=== PATIENT | male | born 1955 | race Caucasian/White ===

== ENCOUNTER → 2019-05-16 | Outpatient (CLI) | payer OTHER ==
[~2019-05-16] MED LIST: AUGMENTIN 875875 MG PO; BENZONATATE100 MG PO; HYDROCODONE-AP1 EAC6 PO; PANTOPRAZOLE SO40 M1 PO; PREDNISONE 10 M10 MG PO; PROMETHAZINE-C120 ML PO; TESTOSTERONE SUPP; TYLENOL325 MG PO
== END ==
LOC: RAD 08:32
DX: J45.991 Cough variant asthma (principal); M41.86 Other forms of scoliosis, lumbar region